=== PATIENT | female | born 1960 | race Caucasian/White ===

== ENCOUNTER 2016-10-21 21:42 | Emergency (ER) | payer MEDICAID ==
[~2016-10-21] VITALS: Ht 160 cm; Wt 72.6 kg
[2016-10-21 21:50] VITALS: BP 160/69
--- NOTE | 2016-10-21 22:00 | NUR ---
CALLED [facility] SPOKE TO LAZARO. HE STS " IF [facility] WOULD LIKE TO FILL A REPORT TO COME TO [facility]." PT NOTIFTED.
--- NOTE | 2016-10-21 22:07 | NUR ---
PT TAKEN TO BED 5
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
--- NOTE | 2016-10-21 22:23 | NUR ---
Dr. Celeste evaluating patient at bedside.
[2016-10-21] MEDS ORDERED: KETOROLAC 30 MG/ML VIAL IM ONE (22:30)
[2016-10-21] MEDS ORDERED: HYDROcodone/APAP 5/325 MG 1 TAB TAB PO ONE (22:30)
--- NOTE | 2016-10-21 22:57 | NUR ---
PT RETURN FROM XRAY
[2016-10-22 00:06] VITALS: BP 142/89
--- NOTE | 2016-10-22 00:06 | NUR ---
Patient discharged with v/s stable. Written and verbal after care instructions given and explained. Patient alert, oriented and verbalized understanding of instructions. Ambulatory with steady gait. All questions addressed prior to discharge. ID band removed. Patient advised to follow up with PMD TTOMORROW OR RETURN TO ER IF CONDITION WORSENS. Rx of NAPROSYN given. Patient educated on indication of medication including possible reaction and side effects. Opportunity to ask questions provided and answered.
== END 2016-10-22 00:06 | disposition home or self-care (01) ==
LOC: MED 21:42
DX: S03.2XXA Dislocation of tooth, initial encounter (principal); S00.83XA Contusion of other part of head, initial encounter; E11.9 Type 2 diabetes mellitus without complications; Y04.2XXA Assault by strike against or bumped into by another person, initial encounter; Y93.89 Activity, other specified; Y92.89 Other specified places as the place of occurrence of the external cause; Y99.8 Other external cause status
CPT/HCPCS: 70100; 96372; 99284; J1885

== ENCOUNTER 2016-10-22 06:45 | Emergency (ER) | payer MEDICAID ==
[~2016-10-22] VITALS: Ht 160 cm; Wt 72.6 kg
[2016-10-22 06:55] VITALS: BP 150/104
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
--- NOTE | 2016-10-22 07:57 | NUR ---
DR STEWART AT BEDSIDE.
--- NOTE | 2016-10-22 08:14 | NUR ---
Saurabh arana in [facility] - 10/22/16 at 0814 by RUBEN PA AT BEDSIDE
--- NOTE | 2016-10-22 08:15 | NUR ---
PT RESTING ON BED;NO ACUTED DISTRESS NOTED;WILL CONTINUE TO MONITOR PT.
--- NOTE | 2016-10-22 08:34 | NUR ---
Patient discharged with v/s stable. Written and verbal after care instructions given and explained. Patient alert, oriented and verbalized understanding of instructions. Ambulatory with steady gait. All questions addressed prior to discharge. ID band removed. Patient advised to follow up with PMD. Rx of HYDROXYZINE HYDROCHLORIDE given. Patient educated on indication of medication including possible reaction and side effects. Opportunity to ask questions provided and answered.
[2016-10-22 08:35] VITALS: BP 146/78
== END 2016-10-22 08:34 | disposition home or self-care (01) ==
LOC: MED 06:45
DX: G47.00 Insomnia, unspecified (principal); E11.9 Type 2 diabetes mellitus without complications; I10 Essential (primary) hypertension
CPT/HCPCS: 99283